=== PATIENT | male | born 1935 | race Caucasian/White ===

== ENCOUNTER 2017-12-23 05:42 | Inpatient (IN) | payer MEDICARE, OTHER ==
[2017-12-23] MEDS ORDERED: NITROGLYCERIN 2% 1 GM OINT PKT TD (05:46)
[2017-12-23 05:59] LABS: ADD MAN DIFF? NO
[2017-12-23] MEDS: NITROGLYCERIN 50 MG/D5W (PMX) 250 ML IV (05:59)
[2017-12-23] MEDS: ASPIRIN 81 MG TAB PO (06:00)
[2017-12-23] MEDS: FUROSEMIDE 20 MG INJ IV (06:00)
[2017-12-23 06:02] LABS: BASOPHIL # 0.1 10^3/ul (0.0-0.1); EOSINOPHILS # 0.5 10^3/ul (0.0-0.5); EOSINOPHILS % 3.8 % (0.0-7.0); HEMATOCRIT 45.6 % (42.0-52.0); LYMPHOCYTES # 3.1 10^3/ul (0.8-2.9); LYMPHOCYTES % 25.5 % (15.0-51.0); MEAN CORPUSCULAR HEMOGLOBIN 28.6 pg (29.0-33.0); MEAN CORPUSCULAR HGB CONC 30.7 g/dl (32.0-37.0); MEAN CORPUSCULAR VOLUME 93.1 fl (82.0-101.0); MEAN PLATELET VOLUME 11.3 fl (7.4-10.4); MONOCYTE # 1.1 10^3/ul (0.3-0.9); NEUTROPHIL # 7.3 10^3/ul (1.6-7.5); NEUTROPHILS % 60.2 % (39.0-77.0); PLATELET COUNT 197 10^3/UL (140-415); RED CELL DISTRIBUTION WIDTH 13.2 % (11.5-14.5)
[2017-12-23 06:02] LABS: WHITE BLOOD COUNT 12.2 10^3/ul (4.8-10.8)
[2017-12-23 06:20] LABS: PROTIME 13.3 Sec (11.9-14.9)
[2017-12-23 06:21] LABS: PARTIAL THROMBOPLASTIN TIME 25.2 Sec (23.0-35.0)
[2017-12-23 06:25] LABS: AADO2 Arterial 314.7 mmHg (7.0-24.0); Allen Test ACCEPTAB; Arterial Base Excess -6.4 mmol/L (-3.0-3); Arterial Blood Gas Oxygen Sat 97.8 mmHG (95.0-100.0); Arterial COHb 0.8 % (0.0-3.0); Arterial Fraction of Oxyhgb 96.7 % (93.0-99.0); Arterial MetHb 0.3 % (0.0-1.5); Arterial Total Hemglobin 14.8 g/dl (12.0-18.0); MODE BCPAP; Site Right Radial
[2017-12-23 06:26] LABS: ALANINE AMINOTRANSFERASE 42 IU/L (13-69); ALBUMIN 4.5 g/dl (3.3-4.9); ALBUMIN/GLOBULIN RATIO 1.55; ALKALINE PHOSPHATASE 131 IU/L (42-121); ANION GAP 14 (5-13); ASPARTATE AMINO TRANSFERASE 53 IU/L (15-46); BILIRUBIN,INDIRECT 0.3 mg/dl (0-1.1); BILIRUBIN,TOTAL 0.3 mg/dl (0.2-1.3); BLOOD UREA NITROGEN 26 mg/dl (7-20); CARBON DIOXIDE 23 mmol/L (21-31); CHLORIDE 105 mmol/L (97-110); CREATININE 1.46 mg/dl (0.61-1.24); GLUCOSE 205 mg/dl (70-220); POTASSIUM 4.6 mmol/L (3.5-5.1); SODIUM 142 mmol/L (135-144); TOTAL PROTEIN 7.4 g/dl (6.1-8.1)
[2017-12-23 06:37] LABS: B-TYPE NATRIURETIC PEPTIDE 3110 PG/ML (0-450); TROPONIN-I < 0.012 ng/ml (0.000-0.120)
[2017-12-23] MEDS ORDERED: NITROGLYCERIN 50 MG/D5W 250 ML BTL (07:00)
[2017-12-23] MEDS ORDERED: NACL 0.9% 3 ML SYG IV (09:00)
[2017-12-23] MEDS ORDERED: ONDANSETRON 4 MG INJ IV (09:00)
[2017-12-23] MEDS: ASPIRIN (EC) 325 MG TAB PO (09:00)
[2017-12-23] MEDS ORDERED: DOCUSATE SODIUM 100 MG CAP PO (09:00)
[2017-12-23] MEDS: FUROSEMIDE 40 MG INJ IV ×2 (09:00→21:07)
[2017-12-23] MEDS ORDERED: ACETAMINOPHEN 325 MG TAB PO (09:00)
[2017-12-23 11:16] LABS: CREATINE KINASE 70 IU/L (23-200)
[2017-12-23 11:17] LABS: ADD UMIC YES; UR ASCORBIC ACID NEGATIVE (NEGATIVE); UR BILIRUBIN (Dip) NEGATIVE (NEGATIVE); UR BLOOD (Dip) 1+ mg/dL (NEGATIVE); UR CLARITY CLEAR (CLEAR); UR COLOR STRAW (YELLOW); UR GLUCOSE (Dip) NEGATIVE (NEGATIVE); UR KETONES (Dip) NEGATIVE (NEGATIVE); UR LEUKOCYTE ESTERASE (Dip) NEGATIVE Leu/ul (NEGATIVE); UR NITRITE (Dip) NEGATIVE (NEGATIVE); UR RBC 7 /HPF (0-5); UR SPECIFIC GRAVITY (Dip) 1.006 (1.003-1.030); UR TOTAL PROTEIN (Dip) NEGATIVE (NEGATIVE); UR UROBILINOGEN (Dip) NEGATIVE (NEGATIVE); UR WBC 1 /HPF (0-5)
[2017-12-23 11:18] LABS: MAGNESIUM 2.1 mg/dl (1.7-2.5)
[2017-12-23 11:18] LABS: PHOSPHORUS 4.9 mg/dl (2.5-4.9)
[2017-12-23 11:29] LABS: CK INDEX 4.2; CK-MB 2.97 ng/ml (0.0-2.4); TROPONIN-I 0.085 ng/ml (0.000-0.120)
[2017-12-23] MEDS: ENOXAPARIN 40 MG/0.4 ML SYG SC (12:57)
[2017-12-23 14:24] LABS: CREATINE KINASE 69 IU/L (23-200)
[2017-12-23 14:37] LABS: CK INDEX 4.9; CK-MB 3.37 ng/ml (0.0-2.4)
[2017-12-23 14:46] LABS: TROPONIN-I 0.194 ng/ml (0.000-0.120)
[2017-12-23 19:46] LABS: CREATINE KINASE 69 IU/L (23-200)
[2017-12-23 19:59] LABS: CK INDEX 4.7; CK-MB 3.25 ng/ml (0.0-2.4)
[2017-12-23 20:00] LABS: TROPONIN-I 0.473 ng/ml (0.000-0.120)
[2017-12-23 23:25] LABS: PROTEIN/CREAT RATIO 0.93 RATIO
[2017-12-24 01:38] LABS: CREATINE KINASE 72 IU/L (23-200)
[2017-12-24 01:50] LABS: CK INDEX 3.9; CK-MB 2.84 ng/ml (0.0-2.4)
[2017-12-24 01:51] LABS: TROPONIN-I 0.564 ng/ml (0.000-0.120)
[2017-12-24 05:15] LABS: ADD MAN DIFF? NO
[2017-12-24 05:23] LABS: WHITE BLOOD COUNT 8.8 10^3/ul (4.8-10.8)
[2017-12-24 05:23] LABS: BASOPHILS % 0.3 % (0.0-2.0); EOSINOPHILS # 0.2 10^3/ul (0.0-0.5); EOSINOPHILS % 1.7 % (0.0-7.0); HEMATOCRIT 40.7 % (42.0-52.0); HEMOGLOBIN 12.9 g/dl (14.0-18.0); LYMPHOCYTES # 1.2 10^3/ul (0.8-2.9); LYMPHOCYTES % 13.8 % (15.0-51.0); MEAN CORPUSCULAR HGB CONC 31.7 g/dl (32.0-37.0); MEAN CORPUSCULAR VOLUME 88.5 fl (82.0-101.0); MEAN PLATELET VOLUME 10.8 fl (7.4-10.4); MONOCYTE # 0.8 10^3/ul (0.3-0.9); MONOCYTES % 9.1 % (0.0-11.0); NEUTROPHIL # 6.6 10^3/ul (1.6-7.5); NEUTROPHILS % 74.6 % (39.0-77.0); PLATELET COUNT 144 10^3/UL (140-415)
[2017-12-24 05:27] LABS: HEMOGLOBIN A1C 5.4 % (0-5.9)
[2017-12-24 05:52] LABS: ALANINE AMINOTRANSFERASE 39 IU/L (13-69); ALBUMIN 3.9 g/dl (3.3-4.9); ALKALINE PHOSPHATASE 104 IU/L (42-121); ANION GAP 11 (5-13); ASPARTATE AMINO TRANSFERASE 34 IU/L (15-46); BILIRUBIN,INDIRECT 0.5 mg/dl (0-1.1); BILIRUBIN,TOTAL 0.5 mg/dl (0.2-1.3); BLOOD UREA NITROGEN 28 mg/dl (7-20); CALCIUM 8.5 mg/dl (8.4-10.2); CARBON DIOXIDE 29 mmol/L (21-31); CHLORIDE 100 mmol/L (97-110); CREATININE 1.18 mg/dl (0.61-1.24); GLUCOSE 119 mg/dl (70-220); POTASSIUM 3.7 mmol/L (3.5-5.1); SODIUM 140 mmol/L (135-144); TOTAL PROTEIN 6.5 g/dl (6.1-8.1)
[2017-12-24] MEDS: ASPIRIN (EC) 325 MG TAB PO (09:59)
[2017-12-24] MEDS: AMIODARONE 200 MG TAB PO ×2 (10:01→20:35)
[2017-12-24] MEDS: ENOXAPARIN 40 MG/0.4 ML SYG SC (10:22)
[2017-12-24] MEDS: BUMETANIDE 1 MG TAB PO (11:48)
[2017-12-24] MEDS: ATORVASTATIN 80 MG TAB PO (20:36)
[2017-12-25 05:46] LABS: ADD MAN DIFF? NO
[2017-12-25 05:55] LABS: WHITE BLOOD COUNT 8.8 10^3/ul (4.8-10.8)
[2017-12-25 05:55] LABS: BASOPHIL # 0.1 10^3/ul (0.0-0.1); BASOPHILS % 0.7 % (0.0-2.0); EOSINOPHILS # 0.2 10^3/ul (0.0-0.5); EOSINOPHILS % 2.7 % (0.0-7.0); HEMATOCRIT 37.9 % (42.0-52.0); HEMOGLOBIN 12.1 g/dl (14.0-18.0); LYMPHOCYTES % 11.2 % (15.0-51.0); MEAN CORPUSCULAR HEMOGLOBIN 28.5 pg (29.0-33.0); MEAN CORPUSCULAR HGB CONC 31.9 g/dl (32.0-37.0); MEAN CORPUSCULAR VOLUME 89.4 fl (82.0-101.0); MEAN PLATELET VOLUME 11.5 fl (7.4-10.4); MONOCYTE # 0.9 10^3/ul (0.3-0.9); MONOCYTES % 9.9 % (0.0-11.0); NEUTROPHIL # 6.6 10^3/ul (1.6-7.5); NEUTROPHILS % 75.2 % (39.0-77.0); PLATELET COUNT 148 10^3/UL (140-415); RED BLOOD COUNT 4.24 10^6/ul (4.70-6.10); RED CELL DISTRIBUTION WIDTH 13.2 % (11.5-14.5)
[2017-12-25 06:14] LABS: ALANINE AMINOTRANSFERASE 28 IU/L (13-69); ALBUMIN 3.7 g/dl (3.3-4.9); ALBUMIN/GLOBULIN RATIO 1.27; ALKALINE PHOSPHATASE 102 IU/L (42-121); ANION GAP 9 (5-13); ASPARTATE AMINO TRANSFERASE 28 IU/L (15-46); BILIRUBIN,INDIRECT 0.3 mg/dl (0-1.1); BILIRUBIN,TOTAL 0.3 mg/dl (0.2-1.3); BLOOD UREA NITROGEN 32 mg/dl (7-20); CALCIUM 8.4 mg/dl (8.4-10.2); CARBON DIOXIDE 29 mmol/L (21-31); CHLORIDE 105 mmol/L (97-110); CREATININE 1.35 mg/dl (0.61-1.24); GLUCOSE 119 mg/dl (70-220); MAGNESIUM 1.9 mg/dl (1.7-2.5); POTASSIUM 3.8 mmol/L (3.5-5.1); SODIUM 143 mmol/L (135-144); TOTAL PROTEIN 6.6 g/dl (6.1-8.1)
[2017-12-25] MEDS: ENOXAPARIN 40 MG/0.4 ML SYG SC (07:58)
[2017-12-25] MEDS: BUMETANIDE 1 MG TAB PO (07:59)
[2017-12-25] MEDS: AMIODARONE 200 MG TAB PO (07:59)
[2017-12-25] MEDS: ASPIRIN (EC) 325 MG TAB PO (07:59)
[2017-12-25 09:11] LABS: PTH INTACT 163 pg/mL (14-64)
[2017-12-25] MEDS: BETAMETHASONE/CLOTRIMAZOLE 15 GM CR TOP ×2 (11:13→21:34)
[2017-12-25] MEDS ORDERED: NITROGLYCERIN (IC) 100 MCG/ML INJ (12:09)
[2017-12-25] MEDS ORDERED: IODIXANOL LOCM 100 ML BTL (12:09)
[2017-12-25] MEDS ORDERED: VERAPAMIL 5 MG INJ (12:09)
[2017-12-25] MEDS ORDERED: LIDOCAINE 2% (MDV) 20 ML INJ (12:09)
[2017-12-25] MEDS ORDERED: HEPARIN 1000 UNITS/ML 10 ML INJ (12:09)
[2017-12-25] MEDS ORDERED: FENTAnyl 50 MCG/ML VIAL (12:10)
[2017-12-25] MEDS ORDERED: MIDAZOLAM 1 MG/ML 2 ML INJ (12:10)
[2017-12-25] MEDS ORDERED: morphine 2 MG INJ IV (14:00)
[2017-12-25] MEDS ORDERED: AL HYDROX/MG HYDROX/SIMETH 30 ML CUP PO (14:00)
[2017-12-25] MEDS ORDERED: ACETAMINOPHEN 325 MG TAB PO (14:00)
[2017-12-25] MEDS ORDERED: ONDANSETRON 4 MG INJ IV (14:00)
[2017-12-25] MEDS: NYSTATIN 30 GM POWDER BTL TOP ×2 (14:55→22:31)
[2017-12-25] MEDS: ATORVASTATIN 80 MG TAB PO (21:33)
[2017-12-26 05:29] LABS: ADD MAN DIFF? NO
[2017-12-26 05:35] LABS: WHITE BLOOD COUNT 9.2 10^3/ul (4.8-10.8)
[2017-12-26 05:35] LABS: BASOPHIL # 0.1 10^3/ul (0.0-0.1); BASOPHILS % 0.7 % (0.0-2.0); EOSINOPHILS # 0.2 10^3/ul (0.0-0.5); EOSINOPHILS % 1.7 % (0.0-7.0); HEMATOCRIT 39.7 % (42.0-52.0); HEMOGLOBIN 12.6 g/dl (14.0-18.0); LYMPHOCYTES % 11.2 % (15.0-51.0); MEAN CORPUSCULAR HEMOGLOBIN 28.4 pg (29.0-33.0); MEAN CORPUSCULAR HGB CONC 31.7 g/dl (32.0-37.0); MEAN CORPUSCULAR VOLUME 89.4 fl (82.0-101.0); MEAN PLATELET VOLUME 10.9 fl (7.4-10.4); NEUTROPHIL # 6.9 10^3/ul (1.6-7.5); PLATELET COUNT 136 10^3/UL (140-415); POSITIVE DIFF @See below; RED BLOOD COUNT 4.44 10^6/ul (4.70-6.10); RED CELL DISTRIBUTION WIDTH 13.2 % (11.5-14.5)
[2017-12-26 05:57] LABS: ALANINE AMINOTRANSFERASE 28 IU/L (13-69); ALBUMIN 3.8 g/dl (3.3-4.9); ALBUMIN/GLOBULIN RATIO 1.31; ALKALINE PHOSPHATASE 90 IU/L (42-121); ANION GAP 8 (5-13); ASPARTATE AMINO TRANSFERASE 23 IU/L (15-46); BILIRUBIN,INDIRECT 0.5 mg/dl (0-1.1); BILIRUBIN,TOTAL 0.5 mg/dl (0.2-1.3); BLOOD UREA NITROGEN 26 mg/dl (7-20); CALCIUM 8.7 mg/dl (8.4-10.2); CARBON DIOXIDE 30 mmol/L (21-31); CHLORIDE 102 mmol/L (97-110); CREATININE 0.99 mg/dl (0.61-1.24); GLUCOSE 118 mg/dl (70-220); MAGNESIUM 1.8 mg/dl (1.7-2.5); PHOSPHORUS 3.8 mg/dl (2.5-4.9); POTASSIUM 3.9 mmol/L (3.5-5.1); SODIUM 140 mmol/L (135-144); TOTAL PROTEIN 6.7 g/dl (6.1-8.1)
[2017-12-26] MEDS: BETAMETHASONE/CLOTRIMAZOLE 15 GM CR TOP (08:20)
[2017-12-26] MEDS: NYSTATIN 30 GM POWDER BTL TOP (08:21)
[2017-12-26] MEDS: ASPIRIN (EC) 325 MG TAB PO (08:21)
[2017-12-26] MEDS: BUMETANIDE 1 MG TAB PO (08:21)
[2017-12-26] MEDS: ENOXAPARIN 40 MG/0.4 ML SYG SC (08:37)
== END 2017-12-26 11:30 | disposition home or self-care (01) | DRG 280 ==
LOC: E/R 05:42 → 6WM 07:30
PROC: 5A09357 Assistance with Respiratory Ventilation, Less than 24 Consecutive Hours, Continuous Positive Airway Pressure (ICD-10-PCS; principal; 2017-12-25 12:25)
PROC: 4A023N7 Measurement of Cardiac Sampling and Pressure, Left Heart, Percutaneous Approach (ICD-10-PCS; 2017-12-25 12:25)
PROC: B211YZZ Fluoroscopy of Multiple Coronary Arteries using Other Contrast (ICD-10-PCS; 2017-12-25 12:25)
DX: I13.0 Hypertensive heart and chronic kidney disease with heart failure and stage 1 through stage 4 chronic kidney disease, or unspecified chronic kidney disease (principal); I50.21 Acute systolic (congestive) heart failure; I21.4 Non-ST elevation (NSTEMI) myocardial infarction; J96.01 Acute respiratory failure with hypoxia; J96.02 Acute respiratory failure with hypercapnia; I87.2 Venous insufficiency (chronic) (peripheral); I48.0 Paroxysmal atrial fibrillation
CPT/HCPCS: 36415; 36600; 71045; 76775; 80053; 81001; 81003; 82550; 82553; 82570; 82728; 82803; 83036; 83735; 83880; 83970; 84100; 84443; 84484; 85025; 85610; 85730; 93005; 93306; 93458; 93970; 94660; 96374; 96375; 99291-25